=== PATIENT | female | born 2000 | race Caucasian/White ===

== ENCOUNTER 2022-04-16 22:00 | Emergency (ER) | payer OTHER ==
[~2022-04-16] VITALS: Ht 165.1 cm; Wt 57.7 kg
[2022-04-16 22:02] VITALS: BP 136/94
[2022-04-16 23:00] LABS: BASO # 0.1 10^3/uL (0.0-0.2); BASO % 0.5 % (0.0-1.0); EOS # 0.2 10^3/uL (0.0-0.5); EOS % 2.5 % (0.0-3.0); HEMATOCRIT 39.4 % (36.0-47.0); HEMOGLOBIN 12.9 g/dl (12.0-15.5); LYMPH # 2.9 10^3/uL (1.5-5.0); LYMPH % 31.4 % (24.0-44.0); MEAN CORPUSCULAR HEMOGLOBIN 27.3 pg (27.0-33.0); MEAN CORPUSCULAR HGB CONC 32.7 g/dl (32.0-36.5); MEAN CORPUSCULAR VOLUME 83.3 fl (80.0-96.0); MONO # 0.8 10^3/uL (0.0-0.8); MONO % 8.4 % (2.0-8.0); NEUTROPHILS # 5.3 10^3/uL (1.5-8.5); PLATELET COUNT, AUTOMATED 282 10^3/uL (150-450); RED BLOOD COUNT 4.73 10^6/uL (4.00-5.40); WHITE BLOOD COUNT 9.4 10^3/uL (4.0-10.0)
[2022-04-16 23:31] LABS: BLOOD UREA NITROGEN 14 MG/DL (7-18); CALCIUM LEVEL 9.1 MG/DL (8.5-10.1); CARBON DIOXIDE LEVEL 27 MEQ/L (21-32); CHLORIDE LEVEL 108 MEQ/L (98-107); CREATININE FOR GFR 0.86 MG/DL (0.55-1.30); GLOMERULAR FILTRATION RATE > 60.0 (>60); GLUCOSE, FASTING 93 MG/DL (70-100); HCG, SERUM QUANTITATIVE < 1.0 MIU/ML; SODIUM LEVEL 139 MEQ/L (136-145)
[2022-04-17] MEDS ORDERED: ACETAMINOPHEN 325 MG TAB PO ONE (02:00)
== END 2022-04-17 02:29 | disposition home or self-care (01) ==
LOC: M ED 22:00
DX: N92.0 Excessive and frequent menstruation with regular cycle (principal)